=== PATIENT | male | born 1955 | race Native Hawaiian/Other Pacific Islander ===

== ENCOUNTER 2018-01-15 08:45 | Outpatient (CLI) | payer OTHER | END 2018-01-15 09:28 | disposition short-term general hospital (02) | LOC: AMB 08:45 | DX: M21.6X1 Other acquired deformities of right foot (principal); M25.471 Effusion, right ankle; W01.0XXA Fall on same level from slipping, tripping and stumbling without subsequent striking against object, initial encounter; Y92.89 Other specified places as the place of occurrence of the external cause | CPT/HCPCS: A0425; A0427 ==